=== PATIENT | female | born 1970 | race Caucasian/White ===

== ENCOUNTER 2016-06-15 22:59 | Inpatient (IN) | payer BC ==
[2016-06-15] MEDS ORDERED: LORazepam 2 MG/ML SYRINGE IV STA (23:22)
[2016-06-15] MEDS ORDERED: SODIUM CHLORIDE 0.9% 1,000 ML IV STA (23:22)
[2016-06-15] MEDS ORDERED: methylPREDNISolone SOD SUCCI 125 MG/2 ML VIAL IV STA (23:22)
[2016-06-15] MEDS ORDERED: IPRATROPIUM-ALBUTEROL 3 ML NEB INHALATION STA (23:22)
[2016-06-15] MEDS ORDERED: RX INFO: IV CONTRAST WAS GIVEN 1 EACH MISC MISCELLANE PRN (23:27)
[2016-06-16 00:13] LABS: Basophils # (A) 0.2 k/uL (0-0.2); Basophils % (A) 1 %; CH 31.9; CHCM 34.6; Eosinophils # (A) 0.2 k/uL (0-0.7); Eosinophils % (A) 1 %; HCT 43.5 % (34.0-46.0); HDW 2.35; HGB 15.4 gm/dL (11.4-16.0); Luc # (Auto) 0.26; Luc % (Auto) 2; Lymphocytes # (A) 6.7 k/uL (1.0-4.8); Lymphocytes % (A) 43 %; MCH 32.7 pg (25.0-35.0); MCHC 35.3 g/dL (31.0-37.0); MCV 92.7 fL (80.0-100.0); Monocytes # (A) 0.8 k/uL (0-1.0); Monocytes % (A) 5 %; Neutrophils # (A) 7.6 k/uL (1.3-7.7); Neutrophils % (A) 48 %; RDW 13.2 % (11.5-15.5); WBC 15.7 k/uL (3.8-10.6); WBC (Perox) 15.58
[2016-06-16 00:22] LABS: ALT 43 U/L (9-52); AST 23 U/L (14-36); Alkaline Phosphatase 65 U/L (38-126); Anion Gap 12 mmol/L; Blood Urea Nitrogen 15 mg/dL (7-17); Carbon Dioxide 22 mmol/L (22-30); Chloride 107 mmol/L (98-107); Creatine Kinase 33 U/L (30-135); Glucose 112 mg/dL (74-99); Non-African American GFR(MDRD) >60 (>60 ml/min/1.73 sqM); Potassium 2.8 mmol/L (3.5-5.1); Sodium 141 mmol/L (137-145); Total Bilirubin 0.3 mg/dL (0.2-1.3); Total Protein 6.2 g/dL (6.3-8.2)
[2016-06-16 00:26] LABS: Manual Review Performed
[2016-06-16] MEDS ORDERED: POTASSIUM CHLORIDE ER 20 MEQ TAB.ER PO STA (00:28)
[2016-06-16] MEDS ORDERED: POTASSIUM CHLORIDE 20 MEQ in WATER FOR INJECTION 1 100ML.BAG IVPB STA (00:28)
[2016-06-16 00:32] LABS: INR 0.9 (<1.1); Prothrombin Time 9.6 sec (9.0-12.0)
[2016-06-16 00:34] LABS: Creatine Kinase MB 0.7 ng/mL (0.0-2.4); Troponin I <0.012 ng/mL (0.000-0.034)
[2016-06-16 00:37] LABS: Partial Thromboplastin Time 20.8 sec (22.0-30.0)
--- NOTE | 2016-06-16 01:03 | ED ---
SOB HPI - General Source: patient Mode of arrival: wheelchair Limitations: no limitations <Damián Becker - Last Filed: 06/16/16 00:55> <Ulices Macias - Last Filed: 06/16/16 04:08> - General Chief Complaint: Shortness of Breath Stated Complaint: TODD Time Seen by Provider: 06/15/16 23:16 - History of Present Illness Initial Comments: This 45-year-old white female presents with a complaint of shortness of breath. 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 She states that it came on fairly suddenly and it is associated with some chest pressure. She denies any history of DVT or PE. She denies any history of lower extremity pain or swelling. She relates that the chest pressure is diffuse in nature. She does present hyperventilating but denies any anxiety or history of anxiety attacks or panic attacks. She does relate a history of COPD and does see Dr. Acuña from pulmonology in this regard. She apparently was diagnosed with bronchitis last week and was placed on an antibiotic, some steroids and an HFA. She denies any fever or chills. She denies any other complaints or modifying factors. (Damián Becker) - Related Data Home Medications Medication Instructions Recorded Confirmed Albuterol Inhaler [Ventolin 1 - 2 puff INHALATION RT-Q6H PRN 06/15/16 06/15/16 Inhaler] Fluticasone/Salmeterol [Advair Hfa 2 puff INHALATION RT-BID 06/15/16 06/15/16 230-21 Mcg Inhaler] predniSONE 20 mg PO TID 06/15/16 06/15/16 Allergies Allergy/AdvReac Type Severity Reaction Status Date / Time cephalexin monohydrate Allergy Unknown Verified 06/15/16 23:13 [From [facility]] Review of Systems ROS Other: All systems not noted in ROS Statement are negative. <Damián Becker - Last Filed: 06/16/16 00:55> ROS Other: All systems not noted in ROS Statement are negative. <Ulices Macias - Last Filed: 06/16/16 04:08> ROS Statement: Those systems with pertinent positive or pertinent negative responses have been documented in the HPI. Past Medical History Past Medical History: COPD History of Any Multi-Drug Resistant Organisms: None Reported Past Surgical History: Tubal Ligation Additional Past Surgical History / Comment(s): uterine ablation Past Psychological History: No Psychological Hx Reported Smoking Status: Current every day smoker Past Alcohol Use History: None Reported Past Drug Use History: None Reported <Damián Becker - Last Filed: 06/16/16 00:55> General Exam Limitations: no limitations <Damián Becker - Last Filed: 06/16/16 00:55> <Ulices Macias - Last Filed: 06/16/16 04:08> - General Exam Comments Initial Comments: GENERAL: The patient is well nourished and well hydrated. VITAL SIGNS: Heart rate, blood pressure, respiratory rate reviewed as recorded in nurse's notes. EYES: Pupils are round and reactive. Extraocular movements are intact. No conjunctival / lid redness or swelling. ENT: No external evidence of injury, swelling, or ecchymosis. Airway is patent. Throat is clear. NECK: Nontender. No swelling or evidence of injury. No subcutaneous emphysema. Trachea is midline. No thyroid mass. HEART: Regular rate and rhythm. Good peripheral pulses. LUNGS/CHEST: There is wheezing present bilaterally. She is tachypneic. No ecchymosis, subcutaneous emphysema, or tenderness. ABDOMEN: Abdomen soft without tenderness. No palpable masses or organomegaly. No peritoneal signs. No abdominal wall swelling or ecchymosis. EXTREMITIES: No extremity tenderness. Normal muscle tone and function. No thoracolumbar tenderness. NEUROLOGIC: Sensation is grossly intact. Cranial nerve exam reveals face is symmetrical, tongue is midline, speech is clear. SKIN: No abrasions or ecchymosis is noted. No induration or masses noted. PSYCHIATRIC: Alert and oriented. Appropriate behavior and judgment. (Damián Becker) Medical Decision Making - Lab Data Result diagrams: 06/16/16 00:01 06/16/16 00:01 <Damián Becker - Last Filed: 06/16/16 00:55> - Lab Data Result diagrams: 06/16/16 00:01 06/16/16 00:01 <Ulices Macias - Last Filed: 06/16/16 04:08> - Medical Decision Making The patient was seen and examined. All diagnostics were reviewed. The EKG shows a normal sinus rhythm at a rate of [address]-T wave changes noted. The CA interval is 178, the QRS duration is 78, and the QTc interval is 440. The laboratory came back showing a decreased potassium and this is replaced with both IV and oral potassium. A computed tomography scan of the thorax is ordered. She apparently is scheduled for a CT scan with IV contrast and 3 days anyways. 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 She is given IV steroids as well as DuoNeb breathing treatments and is doing well on recheck. Further care will be passed off to my partner. (Damián Becker) I received the patient as a sign out pending the result of the computed tomography scan and to reevaluate the patient see if she is feeling well enough to go home. The patient has had some improvement in her respiratory symptoms after the steroids and the nebulized treatments, but does not feel back at her baseline. We'll admit the patient for further treatment of the COPD component and also to have an echocardiogram related to her new pleural effusion. (Ulices Macias) - Lab Data Lab Results 06/16/16 06/16/16 06/16/16 Range/Units 00:01 00:01 00:01 WBC 15.7 H (3.8-10.6) k/uL RBC 4.70 (3.80-5.40) m/uL Hgb 15.4 (11.4-16.0) gm/dL Hct 43.5 (34.0-46.0) % MCV 92.7 (80.0-100.0) fL MCH 32.7 (25.0-35.0) pg MCHC 35.3 (31.0-37.0) g/dL RDW 13.2 (11.5-15.5) % Plt Count 234 (150-450) k/uL Neutrophils % 48 % Lymphocytes % 43 % Monocytes % 5 % Eosinophils % 1 % Basophils % 1 % Neutrophils # 7.6 (1.3-7.7) k/uL Lymphocytes # 6.7 H (1.0-4.8) k/uL Monocytes # 0.8 (0-1.0) k/uL Eosinophils # 0.2 (0-0.7) k/uL Basophils # 0.2 (0-0.2) k/uL Manual Slide Review Performed PT (9.0-12.0) sec INR (<1.1) APTT (22.0-30.0) sec D-Dimer (<0.60) mg/L FEU Sodium 141 (137-145) mmol/L Potassium 2.8 L* (3.5-5.1) mmol/L Chloride 107 (98-107) mmol/L Carbon Dioxide 22 (22-30) mmol/L Anion Gap 12 mmol/L BUN 15 (7-17) mg/dL Creatinine 0.70 (0.52-1.04) mg/dL Est GFR (MDRD) Af Amer >60 (>60 ml/min/1.73 sqM) Est GFR (MDRD) Non-Af >60 (>60 ml/min/1.73 sqM) Glucose 112 H (74-99) mg/dL Calcium 9.0 (8.4-10.2) mg/dL Total Bilirubin 0.3 (0.2-1.3) mg/dL AST 23 (14-36) U/L ALT 43 (9-52) U/L Alkaline Phosphatase 65 (38-126) U/L Total Creatine Kinase 33 (30-135) U/L CK-MB (CK-2) 0.7 (0.0-2.4) ng/mL CK-MB (CK-2) Rel Index 2.1 Troponin I <0.012 (0.000-0.034) ng/mL NT-Pro-B Natriuret Pep pg/mL Total Protein 6.2 L (6.3-8.2) g/dL Albumin 3.9 (3.5-5.0) g/dL 06/16/16 06/16/16 Range/Units 00:01 00:01 WBC (3.8-10.6) k/uL RBC (3.80-5.40) m/uL Hgb (11.4-16.0) gm/dL Hct (34.0-46.0) % MCV (80.0-100.0) fL MCH (25.0-35.0) pg MCHC (31.0-37.0) g/dL RDW (11.5-15.5) % Plt Count (150-450) k/uL Neutrophils % % Lymphocytes % % Monocytes % % Eosinophils % % Basophils % % Neutrophils # (1.3-7.7) k/uL Lymphocytes # (1.0-4.8) k/uL Monocytes # (0-1.0) k/uL Eosinophils # (0-0.7) k/uL Basophils # (0-0.2) k/uL Manual Slide Review PT 9.6 (9.0-12.0) sec INR 0.9 (<1.1) APTT 20.8 L (22.0-30.0) sec D-Dimer <0.17 (<0.60) mg/L FEU Sodium (137-145) mmol/L Potassium (3.5-5.1) mmol/L Chloride (98-107) mmol/L Carbon Dioxide (22-30) mmol/L Anion Gap mmol/L BUN (7-17) mg/dL Creatinine (0.52-1.04) mg/dL Est GFR (MDRD) Af Amer (>60 ml/min/1.73 sqM) Est GFR (MDRD) Non-Af (>60 ml/min/1.73 sqM) Glucose (74-99) mg/dL Calcium (8.4-10.2) mg/dL Total Bilirubin (0.2-1.3) mg/dL AST (14-36) U/L ALT (9-52) U/L Alkaline Phosphatase (38-126) U/L Total Creatine Kinase (30-135) U/L CK-MB (CK-2) (0.0-2.4) ng/mL CK-MB (CK-2) Rel Index Troponin I (0.000-0.034) ng/mL NT-Pro-B Natriuret Pep 45 pg/mL Total Protein (6.3-8.2) g/dL Albumin (3.5-5.0) g/dL Disposition <Damián Becker - Last Filed: 06/16/16 00:55> <Ulices Macias - Last Filed: 06/16/16 04:08> Clinical Impression: COPD (chronic obstructive pulmonary disease), Dyspnea, Chest pain, Pericardial effusion Disposition: ADMITTED IP TO THIS HOSP Condition: Fair Referrals: Solo Ibarra MD [Primary Care Provider] - 1-2 days
[2016-06-16] MEDS ORDERED: POTASSIUM CHLORIDE 20 MEQ, LIDOCAINE 2% INJ 20 MG in SODIUM CHLORIDE 0.9% 100 ML IVPB ONE (01:15)
--- NOTE | 2016-06-16 01:51 | CT ---
PROCEDURE: CTA CHEST With Contrast HISTORY: 45-year-old female with shortness of breath and chest pressure. COMPARISON: CT chest 11/20/2015 and CTA chest 05/22/2015 TECHNIQUE: After administration of 70 mL of Omnipaque 350 contrast material intravenously, CT imaging was obtained through the chest. Coronal and sagittal reformations were performed. DOSE: Total Exam volume computed tomography dose index (CTDIvol) = 58 mGy and Dose Length Product (DLP) = 259.2 mGY-cm. FINDINGS: Evaluation is limited by motion degradation and technique. Soft tissues: Visualized portions of the thyroid gland are unremarkable. No significant mediastinal or axillary lymphadenopathy. There are a few mildly enlarged right hilar lymph nodes, similar to prior. Continued CT followup is recommended within 4-6 months. There is a small pericardial effusion, new compared to prior, measuring approximately 8 millimeters in thickness. Otherwise, the heart is within normal limits. There are a few atherosclerotic calcifications of the thoracic aorta. Evaluation for pulmonary embolism is limited by bolus timing and motion degradation. There is no evidence of large central pulmonary embolism. The esophagus is unremarkable. Limited evaluation of the upper abdomen demonstrates postoperative changes of cholecystectomy. Lungs: Mild centrilobular and paraseptal emphysema. There are a few scattered air cysts. 4 millimeter right upper lobe ground glass nodule laterally, series 5 image 30. 3 millimeter groundglass nodule in the anterior aspect of the left upper lobe, series 5 image 34 . Bilateral atelectasis. No pleural effusion. Mild bilateral bronchial wall thickening, may be due to bronchitis. Bones: Unremarkable for age IMPRESSION: 1. New small pericardial effusion, measuring approximately 8 millimeters in thickness. 2. Emphysema. Bilateral groundglass nodules as detailed above. Followup per Fleischner Society guidelines is recommended. 3. Mild bronchial wall thickening, may be due to bronchitis. 4. Right hilar lymphadenopathy, similar to prior. Continued CT followup is recommended within 4-6 months. 5. Evaluation for pulmonary embolism is limited by bolus timing and motion degradation. There is no evidence of large central pulmonary embolism. 6. Other findings as detailed above. [employer] 06/16/16 01:53 Verify Receipt Verified receipt with Dr Rome on 06/16 01:53 (-05:00)
[2016-06-16 05:07] VITALS: BMI 28.3
[2016-06-16 06:43] LABS: ALT 49 U/L (9-52); AST 37 U/L (14-36); Alkaline Phosphatase 63 U/L (38-126); Anion Gap 11 mmol/L; Blood Urea Nitrogen 12 mg/dL (7-17); Calcium 8.7 mg/dL (8.4-10.2); Carbon Dioxide 20 mmol/L (22-30); Chloride 110 mmol/L (98-107); Glucose 151 mg/dL (74-99); Non-African American GFR(MDRD) >60 (>60 ml/min/1.73 sqM); Potassium 3.8 mmol/L (3.5-5.1); Sodium 141 mmol/L (137-145); Total Bilirubin 0.3 mg/dL (0.2-1.3); Total Protein 5.9 g/dL (6.3-8.2)
[2016-06-16 06:48] LABS: Glucose,Whole Blood 150 mg/dL (75-99)
[2016-06-16] MEDS: methylPREDNISolone SOD SUCCI 125 MG/2 ML VIAL IV SCH ×2 (06:50→12:26)
[2016-06-16] MEDS: INSULIN LISPRO (humaLOG) 300 UNIT/3 ML VIAL SQ SCH ×2 (07:29→12:24)
[2016-06-16] MEDS ORDERED: SYMBICORT 160-4.5 MCG INHALER INHALATION SCH (08:00)
[2016-06-16] MEDS ORDERED: ALBUTEROL NEBULIZED 2.5 MG/3 ML INHALATION SCH (08:00)
[2016-06-16] MEDS: IPRATROPIUM-ALBUTEROL 3 ML NEB INHALATION SCH ×2 (08:40→12:00)
[2016-06-16] MEDS ORDERED: POTASSIUM CHLORIDE ER 20 MEQ TAB.ER PO SCH (09:00)
[2016-06-16] MEDS ORDERED: NICOTINE 14MG/24HR PATCH TRANSDERM SCH (09:00)
--- NOTE | 2016-06-16 10:40 | ECHOF ---
Referral Reason:new pericardial effusion MEASUREMENTS -------- HEIGHT: 165.1 cm WEIGHT: 77.1 kg BP: 121/77 RVIDd: 3.2 cm (< 3.3) IVSd: 0.9 cm (0.6 - 1.1) LVIDd: 4.7 cm (3.9 - 5.3) LVPWd: 0.9 cm (0.6 - 1.1) IVSs: 1.4 cm LVIDs: 3.1 cm LVPWs: 1.5 cm LA Diam: 2.9 cm (2.7 - 3.8) LAESV Index (A-L): 20.14 ml/m Ao Diam: 3.0 cm (2.0 - 3.7) AV Cusp: 1.4 cm (1.5 - 2.6) LA Diam: 2.1 cm (2.7 - 3.8) MV EXCURSION: 16.399 mm (> 18.000) MV EF SLOPE: 104 mm/s (70 - 150) EPSS: 0.3 cm MV E Sudeep: 0.98 m/s MV DecT: 258 ms MV A Sudeep: 0.97 m/s MV E/A Ratio: 1.02 AV maxP.63 mmHg AV meanP.04 mmHg RAP: 5.00 mmHg RVSP: 28.76 mmHg FINDINGS -------- Sinus rhythm. This was a technically good study. Left ventricular wall thickness is normal. Overall left ventricular systolic function is normal with, an EF between 55 - 60 %. The right ventricle is normal in size. Normal LA size by volume 22+/-6 ml/m2. The right atrium is normal in size. Aortic valve is trileaflet and is mildly thickened. Peak/mean gradient across the Aortic Valve is 11.63mmHg / 6.04mmHg. Mild mitral annular calcification present. There is trace mitral regurgitation. Trace tricuspid regurgitation present. Right ventricular systolic pressure is normal at < 35 mmHg. Pulmonic valve appears structurally normal. The aortic root size is normal. Normal inferior vena cava with normal inspiratory collapse consistent with estimated right atrial pressure of 5 mmHg. Echo free space may represent effusion or a pericardial fat pad. CONCLUSIONS -------- 1. Sinus rhythm. 2. Mild mitral annular calcification present. 3. There is trace mitral regurgitation. 4. Trace tricuspid regurgitation present. 5. Right ventricular systolic pressure is normal at < 35 mmHg. 6. Pulmonic valve appears structurally normal. 7. The aortic root size is normal. 8. Normal inferior vena cava with normal inspiratory collapse consistent with estimated right atrial pressure of 5 mmHg. 9. Echo free space may represent effusion or a pericardial fat pad. 10. This was a technically good study. 11. Left ventricular wall thickness is normal. 12. Overall left ventricular systolic function is normal with, an EF between 55 - 60 %. 13. The right ventricle is normal in size. 14. Normal LA size by volume 22+/-6 ml/m2. 15. The right atrium is normal in size. 16. Aortic valve is trileaflet and is mildly thickened. 17. Peak/mean gradient across the Aortic Valve is 11.63mmHg / 6.04mmHg. ANTHROPOLOGY INSTRUCTOR: Fernando Hawthorne RDCS
[2016-06-16 11:20] VITALS: BP 100/73; RESP 20; TEMP 97.9
--- NOTE | 2016-06-16 11:25 | P.CRDCN ---
History of Present Illness Consult date: 06/16/16 Requesting physician: Dion Hernandes Consult reason: shortness of breath Chief complaint: Shortness of breath History of present illness: This is a 45-year-old female with no prior documented history of hypertension, no diabetes, no hyperlipidemia, COPD, nicotine dependence, who presents to the hospital with symptoms of shortness of breath and mild chest pressure. According to the patient, she's been dealing with an upper respiratory infection and bronchitis for the past one to 2 weeks, she states that she was at work last evening, when she became quite short of breath. She did state that she had a mild pressure in the chest that worsened with deep breathing. For this reason she came to the emergency room for further evaluation. EKG on arrival here showed a normal sinus rhythm with no acute changes. CT of the chest was performed which revealed new small pericardial effusion approximately 8 mm in thickness. Emphysema. Right hilar lymphadenopathy similar to prior CT. No evidence of large central pulmonary embolism. White blood cell count on admission 15.7, d-dimer 0.17, potassium on admission 2.8, this morning 3.8. BUN 12, creatinine 0.6. Troponin 0.012. Blood pressure on admission 125/83, respirations 32, 100% on room air. At the time of my examination this morning, patient states that her breathing is improved, still has mild congestion and cough from her recent bronchitis. Past Medical History Past Medical History: COPD History of Any Multi-Drug Resistant Organisms: None Reported Past Surgical History: Section, Tubal Ligation Additional Past Surgical History / Comment(s): uterine ablation Past Anesthesia/Blood Transfusion Reactions: No Reported Reaction Past Psychological History: No Psychological Hx Reported Smoking Status: Current every day smoker Past Alcohol Use History: None Reported Past Drug Use History: None Reported - Past Family History Mother Family Medical History: Cancer Additional Family Medical History / Comment(s): BREAST CANCER Medications and Allergies Home Medications Medication Instructions Recorded Confirmed Type Albuterol Inhaler [Ventolin 1 - 2 puff INHALATION RT-Q6H PRN 06/15/16 06/15/16 History Inhaler] Fluticasone/Salmeterol [Advair Hfa 2 puff INHALATION RT-BID 06/15/16 06/15/16 History 230-21 Mcg Inhaler] predniSONE 20 mg PO TID 06/15/16 06/15/16 History Allergies Allergy/AdvReac Type Severity Reaction Status Date / Time cephalexin monohydrate Allergy Unknown Verified 06/15/16 23:13 [From Keflex] Physical Exam Vitals: Vital Signs Temp Pulse Pulse Resp BP BP Pulse Ox 06/16/16 09:10 97.2 F L 7 L 24 110/52 96 06/16/16 06:43 97.0 F L 86 18 121/77 94 L 06/16/16 04:44 82 18 94/55 95 06/16/16 04:35 97.0 F L 86 19 121/77 94 L Intake and Output 06/15/16 06/16/16 06/16/16 22:59 06:59 14:59 Intake Total 700 120 Output Total 600 400 Balance 100 -280 Intake: IV 200 Sodium Chloride 0.9% 1, 200 000 ml @ 100 mls/hr IV . Q10H STA Rx#:[id number] Amount of Fluid Infused ( 500 ml) Oral 120 Output: Urine 600 400 Other: Voiding Method Toilet Toilet # Voids 1 Weight 79 kg PHYSICAL EXAMINATION: HEENT: Head is atraumatic, normocephalic. Pupils equal, round. Neck is supple. There is no elevated jugular venous pressure. HEART EXAMINATION: Heart S1 and S2 systolic murmur is heard CHEST EXAMINATION: Lungs are clear with fine crackles to the bases. ABDOMEN: Soft, nontender. Bowel sounds are heard. No organomegaly noted. EXTREMITIES: 2+ peripheral pulses with no evidence of peripheral edema and no calf tenderness noted. NEUROLOGIC patient is awake, alert and oriented -3. . Results 06/16/16 00:01 06/16/16 06:13 Cardiac Enzymes 06/16/16 Range/Units 06:13 AST 37 H (14-36) U/L Comprehensive Metabolic Panel 06/16/16 Range/Units 06:13 Sodium 141 (137-145) mmol/L Potassium 3.8 (3.5-5.1) mmol/L Chloride 110 H (98-107) mmol/L Carbon Dioxide 20 L (22-30) mmol/L BUN 12 (7-17) mg/dL Creatinine 0.60 (0.52-1.04) mg/dL Glucose 151 H (74-99) mg/dL Calcium 8.7 (8.4-10.2) mg/dL AST 37 H (14-36) U/L ALT 49 (9-52) U/L Alkaline Phosphatase 63 (38-126) U/L Total Protein 5.9 L (6.3-8.2) g/dL Albumin 3.6 (3.5-5.0) g/dL Current Medications Generic Name Dose Route Start Last Admin Trade Name Freq PRN Reason Stop Dose Admin Albuterol/Ipratropium 3 ml 06/16/16 08:00 Duoneb 0.5 Mg-3 Mg/3 Ml Soln INHALATION RT-QID ISABELLA Budesonide/Formoterol Fumarate 2 puff 06/16/16 08:00 Symbicort 160-4.5 Mcg Inhaler INHALATION RT-BID [facility] Insulin Human Lispro 0 unit 06/16/16 07:30 06/16/16 07:29 Humalog SQ 2 unit ACHS ISABELLA Administration Protocol Methylprednisolone Sodium Succinate 60 mg 06/16/16 06:00 06/16/16 06:50 Solu-Medrol IV 60 mg Q6HR ISABELLA Administration Miscellaneous Information 1 each 06/15/16 23:27 Rx Info: Iv Contrast Was Given MISCELLANE 06/17/16 23:27 DAILY PRN Per Protocol Nicotine 1 patch 06/16/16 09:00 06/16/16 09:15 Habitrol 14mg/24hr Patch TRANSDERM Not Given Q24H [facility] Potassium Chloride 20 meq 06/16/16 09:00 06/16/16 09:15 K-Dur 20 PO 20 meq BID ISABELLA Administration Intake and Output 06/15/16 06/16/16 06/16/16 22:59 06:59 14:59 Intake Total 700 120 Output Total 600 400 Balance 100 -280 Intake: IV 200 Sodium Chloride 0.9% 1, 200 000 ml @ 100 mls/hr IV . Q10H STA Rx#:[id number] Amount of Fluid Infused ( 500 ml) Oral 120 Output: Urine 600 400 Other: Voiding Method Toilet Toilet # Voids 1 Weight 79 kg 06/16/16 06:13 EKG Interpretations (text) EKG shows normal sinus rhythm with no acute changes. Assessment and Plan Plan: Assessment and plan #1 symptoms of a fairly sudden onset of shortness of breath with mild associated chest discomfort. Atypical for acute coronary syndrome. Troponin 0.012. EKG shows normal sinus rhythm with no acute changes. CT of the chest reveals small pericardial effusion #2 recent bronchitis, on antibiotics and steroids. #3 hypokalemia, potassium 2.8 on admission, 3.8 this morning. #4 nicotine dependence #5 COPD Plan We will obtain an echocardiogram with Doppler study along with sed rate. Further recommendations to follow. DNP note has been reviewed, I agree with a documented findings and plan of care. Patient was seen and examined.
[2016-06-16 12:04] VITALS: PULSE 72
[2016-06-16 12:12] LABS: Glucose,Whole Blood 195 mg/dL (75-99)
--- NOTE | 2016-06-16 18:25 | HP ---
H&P AND DISCHARGE SUMMARY DATE OF ADMISSION: 06/16/2016 Patient is a 45-year-old female with known history of COPD and continued nicotine use. She came in with complaints of shortness of breath, cough, barely able to produce any sputum, which is yellowish in color. Denied any complaints of chest pain, nausea, vomiting. Denied any abdominal pain. Incidentally patient on CT was found to have possibility of pericardial effusion, because of which patient underwent echocardiogram. There may be a mild pericardial effusion or it can be even pericardial fat. No further intervention is being recommended by Cardiology. Patient is saturating well on room air. Patient has good air entry into bilateral lung toro. Patient will be discharged today on weaning dose of steroids and doxycycline for bronchitis. Patient denied any fever or chills. Patient does not have any pneumonic process on the CT. No pulmonary embolism on the CT. REVIEW OF SYSTEMS: CONSTITUTIONAL: No fever, no malaise, no fatigue. HEENT: No recent visual problems or hearing problems. Denied any sore throat. CARDIOVASCULAR: As described in HPI. PULMONARY: As described in HPI. GASTROINTESTINAL: No diarrhea, no nausea, no vomiting, no abdominal pain. Normoactive bowel sounds. NEUROLOGICAL: No headaches, no weakness, no numbness. HEMATOLOGICAL: Denies any bleeding or petechiae. GENITOURINARY: Denies any burning micturition, frequency, or urgency. MUSCULOSKELETAL/RHEUMATOLOGICAL: Denies any joint pain, swelling, or any muscle pain. ENDOCRINE: Denies any polyuria or polydipsia. The rest of the 14 point review of systems is negative. Past medical history is significant for: 1. COPD. 2. section. 3. Tubal ligation surgery. 4. Uterine ablation surgery. Patient does smoke and is willing to quit smoking. Denied any alcohol abuse or any drug abuse. FAMILY HISTORY: Mother had breast cancer. HOME MEDICATIONS: 1. Albuterol. 2. Fluticasone/salmeterol. 3. Prednisone. ALLERGIES: KEFLEX. PHYSICAL EXAMINATION: VITAL SIGNS: Temperature 97.9, pulse of 72, respiratory rate of 84. Blood pressure is 110/52. Saturating at 95% on room air. GENERAL: The patient is alert and oriented x3, not in any acute distress. Well developed, well nourished. HEENT: Pupils are round and equally reacting to light. EOMI. No scleral icterus. No conjunctival pallor. Normocephalic, atraumatic. No pharyngeal erythema. No thyromegaly. CARDIOVASCULAR: S1 and S2 present. No murmurs, rubs, or gallops. PULMONARY: Chest is clear to auscultation, no wheezing or crackles. ABDOMEN: Soft, nontender, nondistended, normoactive bowel sounds. No palpable organomegaly. MUSCULOSKELETAL: No joint swelling or deformity. EXTREMITIES: No cyanosis, clubbing, or pedal edema. NEUROLOGICAL: Gross neurological examination did not reveal any focal deficits. SKIN: No rashes. LABORATORY DATA: CBC, CMP are abnormal for elevated WBC count of 15,700. Potassium was 2.8; now with correction it is 3.8. Chest CT as mentioned above. ASSESSMENT AND PLAN: 1. Chronic obstructive pulmonary disease with acute exacerbation. Patient will be discharged on systemic steroids, inhalational treatments. Patient is otherwise clinically doing well. 2. Tracheobronchitis. 3. Hypokalemia, which was supplemented. 4. Nicotine dependence. Counseling was provided. Cardiology evaluated the patient. Patient is being discharged today in stable medical condition to home. Activity as tolerated. Nicotine cessation counseling was provided. Please refer to my depart summary for further details of discharge medications. This dictation is both H&P and discharge summary. Patient will follow up with Dr. Ibarra on June 17 at 9:50. Patient will follow up with Dr. Jaylon Rosenthal in 2 weeks. Patient can return to work next Wednesday.
== END 2016-06-16 16:06 | disposition home or self-care (01) | DRG 191 ==
LOC: EC 22:59 → 6SEL 06-16 04:29
PROVIDERS: ADMIT Hospitalist; ATTEND Hospitalist
DX: J44.1 Chronic obstructive pulmonary disease with (acute) exacerbation (principal); I31.3 Pericardial effusion (noninflammatory); E87.6 Hypokalemia; F17.200 Nicotine dependence, unspecified, uncomplicated; R07.89 Other chest pain; R59.0 Localized enlarged lymph nodes; Z79.899 Other long term (current) drug therapy; Z88.1 Allergy status to other antibiotic agents
CPT/HCPCS: 36415; 71275; 80053; 82550; 82553; 83880; 84484; 85025; 85379; 85610; 85652; 85730; 93005; 93306; 94640; 96361; 96365; 96366; 96375; 99285

== ENCOUNTER → 2017-06-21 | Outpatient (CLI) | payer BC ==
--- NOTE | 2017-06-21 09:35 | CT ---
EXAMINATION TYPE: CT chest w con DATE OF EXAM: 06/21/2017 COMPARISON: 06/16/2016 and 05/22/2015 HISTORY: 46-year-old female Lymphadenopathy TECHNIQUE: Contiguous axial scanning of the chest after the administration of 100 ml mL of Omnipaque 300. Coronal/sagittal reconstructions performed. CT DLP: 255.50mGycm. Automatic exposure control utilized for a dose reduction. FINDINGS: Heart is normal size with small anterior pericardial effusion measuring 1.3 cm thick. Ascending aorta upper limits of normal at 3.6 cm. There is variant direct takeoff of the left vertebr al artery directly from the aortic arch. No thoracic lymphadenopathy by CT size criteria. Previously seen right hilar lymphadenopathy has res olved. Redemonstrated is mild centrilobular emphysema. Mild strandy dependent atelectasis in the lung bases. No consolidation or pleural effusion. Visualized upper abdomen shows cholecystectomy clips. Bones: No osseous destructive process. IMPRESSION: 1. Previously seen right hilar lymphadenopathy has resolved suggesting a postinflammatory etiology. 2. Small anterior pericardial effusion now measuring 1.3 cm thick versus 8 mm, previously. 3. COPD with mild emphysema.
== END | disposition home or self-care (01) ==
LOC: RADCTMAIN 08:40
PROVIDERS: ATTEND Internal Medicine Critical Care Medicine
DX: I31.3 Pericardial effusion (noninflammatory) (principal); J43.9 Emphysema, unspecified; Z88.1 Allergy status to other antibiotic agents
CPT/HCPCS: 71260; Q9967

== ENCOUNTER → 2018-07-11 | Outpatient (CLI) | payer BC ==
[2018-07-11 11:47] LABS: HCT 43.6 % (34.0-46.0); HGB 14.9 gm/dL (11.4-16.0); MCH 30.5 pg (25.0-35.0); MCV 89.6 fL (80.0-100.0); Mean Platelet Volume 7.9; Platelet Count 265 k/uL (150-450); RBC 4.87 m/uL (3.80-5.40); RDW 13.8 % (11.5-15.5); WBC 8.2 k/uL (3.8-10.6)
[2018-07-11 11:53] LABS: Anion Gap 6 mmol/L; Blood Urea Nitrogen 18 mg/dL (7-17); Carbon Dioxide 28 mmol/L (22-30); Chloride 107 mmol/L (98-107); Potassium 4.7 mmol/L (3.5-5.1); Sodium 141 mmol/L (137-145)
== END | disposition home or self-care (01) ==
LOC: LABPAT 07-08 11:52
PROVIDERS: ATTEND Internal Medicine Interventional Cardiology
DX: Z01.812 Encounter for preprocedural laboratory examination (principal); R07.9 Chest pain, unspecified
CPT/HCPCS: 36415; 80051; 82565; 84520; 85027

== ENCOUNTER → 2018-07-20 | Day surgery (SDC) | payer BC ==
[2018-07-14 13:32] VITALS: BMI 27.9
[~2018-07-20] MED LIST: ALPRAZolam 0.25 MG TAB PO PRN; ALPRAZolam 0.5 MG TAB PO PRN; ASPIRIN 325 MG TAB PO STA; ATORVASTATIN 80 MG TAB PO STA; HEPARIN SODIUM 1,000 UN/ML (10ML VL) IV ONE; IOPAMIDOL-370 150ML BTL INJ ONE; LIDOCAINE 1% INJ 10MG/ML (20 ML MDV) SQ ONE; NITROGLYCERIN SL TABS 0.4 MG TAB SUBLINGUAL PRN; RX INFO: IV CONTRAST WAS GIVEN 1 EACH MISC MISCELLANE PRN; SODIUM CHLORIDE 0.9% 1,000 ML IV SCH; SODIUM CHLORIDE 0.9% 1,000 ML in EMPTY BAG 1 BAG IV ONE
[2018-07-20 12:23] VITALS: RESP 18; TEMP 98
[2018-07-20] MEDS: MIDAZOLAM 2 MG/2 ML VIAL IV ONE ×2 (14:15→14:20)
[2018-07-20] MEDS: VERAPAMIL SYRINGE (5 MG/10 ML) INTRAARTER ONE ×2 (14:21→14:32)
--- NOTE | 2018-07-20 15:23 | CC ---
CARDIAC CATHETERIZATION REPORT DATE OF SERVICE: 07/20/2018 PERFORMING PHYSICIAN: Nemesio Espinoza MD, Technical System Analyst. PROCEDURE PERFORMED: 1. Selective right and left coronary angiogram. 2. Left heart catheterization. INDICATION: This is a 47-year-old female patient with very significant family history of coronary artery disease who continues to have chest discomfort in spite of a normal stress test. Because of that, I had a concern about severe underlying coronary artery disease and the patient was scheduled to undergo a heart catheterization. APPROACH: Right radial artery. COMPLICATION: None. LEVEL OF SEDATION: Moderate with sedation length of 15 minutes. PROCEDURE DESCRIPTION: After obtaining an informed consent, the patient was brought to the cardiac labor union business representative. The right radial artery was cannulated using micropuncture technique and a micropuncture wire passed easily, then I placed a 6-Indonesian sheath in the right radial artery. I gave the patient 2 mg of verapamil IA and 8,000 units of heparin IV. I did selective right and left coronary angiogram using JR4 and JL3.5 catheters. A left heart catheterization was performed using 6-Indonesian pigtail catheter. The procedure was completed without any complication. SELECTIVE CORONARY ANGIOGRAM: 1. The right coronary artery is a large caliber vessel and it is a dominant vessel. The RCA has mild disease in the midportion, appeared to be in the range of 30%. Distally bifurcates into PDA and PLV branches both appeared to be angiographically normal. 2. The left main is angiographically normal, it bifurcates into left circumflex and left anterior descending artery. 3. Left circumflex is a large caliber vessel. It is a nondominant vessel. The left circumflex appeared to have mild disease in the first obtuse marginal branch only. 4. The LAD, the proximal LAD appeared to be angiographically normal. It gives rise into a large first diagonal branch which has mild ostial disease. The LAD in the midportion has mild disease only. The LAD distally appeared to be angiographically normal. HEMODYNAMICS: The left ventricular end-diastolic pressure was 8 mmHg without significant gradient across the aortic valve. CONCLUSION: 1. Mild to moderate nonobstructive disease involving the mid right coronary artery as well as LAD. 2. Postprocedure management is maximize medical treatment. 3. Aggressive cholesterol, controlled. 4. Follow up with the patient. MMODL / IJN: [id number] /
--- NOTE | 2018-07-20 16:33 | LTR ---
DATE OF SERVICE: July 20, [address] Ibarra: Ms. Juana Baxter underwent a heart catheterization and that revealed mild nonobstructive coronary artery disease. Thank you for allowing me to participate in his care and please do not hesitate to call if you have any questions or concerns. MMFREDIL / IJN: [id number] /
[2018-07-20 18:22] VITALS: BP 124/76; PULSE 62
== END ==
LOC: CATHCVL 11:50
PROVIDERS: ATTEND Internal Medicine Interventional Cardiology
DX: I25.110 Atherosclerotic heart disease of native coronary artery with unstable angina pectoris (principal); Z87.891 Personal history of nicotine dependence; Z82.49 Family history of ischemic heart disease and other diseases of the circulatory system; R07.89 Other chest pain; Z88.1 Allergy status to other antibiotic agents; Z79.51 Long term (current) use of inhaled steroids; Z79.899 Other long term (current) drug therapy; J44.9 Chronic obstructive pulmonary disease, unspecified
CPT/HCPCS: 93458; C1894; J2250; J2001; J1644; Q9967

== ENCOUNTER → 2018-11-12 | Outpatient (CLI) | payer BC ==
[2018-11-12 16:59] LABS: LDL Cholesterol,Calculated 70.2 mg/dL (0.0-131.0); VLDL Calculation 16.8 mg/dL (5.00-40.00)
== END | disposition home or self-care (01) ==
LOC: LABWHC1 09:05
PROVIDERS: ATTEND Internal Medicine Interventional Cardiology
DX: E78.2 Mixed hyperlipidemia (principal)
CPT/HCPCS: 36415; 80061; 84450; 84460

== ENCOUNTER 2019-11-24 17:54 | Observation (INO) | payer BC ==
[2019-11-24] MEDS ORDERED: ASPIRIN 81 MG PO STA (19:01)
[2019-11-24] MEDS ORDERED: NITROGLYCERIN SL TABS 0.4 MG TAB SUBLINGUAL STA ×3 (19:01)
--- NOTE | 2019-11-24 19:04 | ED ---
General Adult HPI - General Chief complaint: Chest Pain Stated complaint: Chest pain Time Seen by Provider: 11/24/19 18:40 Source: patient, RN notes reviewed Mode of arrival: ambulatory Limitations: no limitations - History of Present Illness Initial comments: Patient is a pleasant 49-year-old female presenting to the emergency Department with chest discomfort. Onset of symptoms was just prior to arrival. Discomfort feels like tightness. No radiation. Patient does have associated dyspnea. No associated nausea or diaphoresis. Patient did have similar symptoms around a year ago and had heart catheterization showing 30-40% blockage. Discomfort is currently rated 6/10. No leg pain or leg swelling. - Related Data Home Medications Medication Instructions Recorded Confirmed Fluticasone/Salmeterol [Advair Hfa 2 puff INHALATION BID 06/15/16 07/20/18 230-21 Mcg Inhaler] Allergies Allergy/AdvReac Type Severity Reaction Status Date / Time cephalexin monohydrate Allergy Rash/Hives Verified 11/24/19 18:08 [From [employer]] Review of Systems ROS Statement: Those systems with pertinent positive or pertinent negative responses have been documented in the HPI. ROS Other: All systems not noted in ROS Statement are negative. Constitutional: Denies: fever Eyes: Denies: eye pain ENT: Denies: ear pain Respiratory: Reports: dyspnea. Denies: cough Cardiovascular: Reports: chest pain Endocrine: Denies: fatigue Gastrointestinal: Denies: abdominal pain Genitourinary: Denies: dysuria Musculoskeletal: Denies: back pain Skin: Denies: rash Neurological: Denies: weakness Past Medical History Past Medical History: COPD History of Any Multi-Drug Resistant Organisms: None Reported Past Surgical History: Section, Tubal Ligation Additional Past Surgical History / Comment(s): uterine ablation Past Anesthesia/Blood Transfusion Reactions: No Reported Reaction Past Psychological History: No Psychological Hx Reported Smoking Status: Never smoker Past Alcohol Use History: None Reported Past Drug Use History: None Reported - Past Family History Mother Family Medical History: Cancer, Deep Vein Thrombosis (DVT), Pulmonary Embolus Additional Family Medical History / Comment(s): BREAST CANCER General Exam Limitations: no limitations General appearance: alert, in no apparent distress Head exam: Present: normocephalic Eye exam: Present: normal appearance Neck exam: Present: normal inspection Respiratory exam: Present: normal lung sounds bilaterally. Absent: chest wall tenderness Cardiovascular Exam: Present: regular rate, normal rhythm Expanded Peripheral pulses: 2+: Radial (R), Radial (L), Dorsalis Pedis (R), Dorsalis Pedis (L) GI/Abdominal exam: Present: soft. Absent: tenderness Extremities exam: Present: normal inspection. Absent: pedal edema, calf tenderness Neurological exam: Present: alert Psychiatric exam: Present: normal affect, normal mood Skin exam: Present: normal color Course Vital Signs 11/24/19 11/24/19 18:06 19:17 Temperature 98.2 F Pulse Rate 64 61 Respiratory 16 18 Rate Blood Pressure 145/85 150/88 O2 Sat by Pulse 100 97 Oximetry EKG Findings - EKG Comments: EKG Findings:: Sinus bradycardia 59. OK 200. QRS 86. QT 448. QTC 443. Normal axis. Normal QRS. No acute ST change. Medical Decision Making - Medical Decision Making Patient reevaluated and does appear more comfortable. Patient states there has been mild improvement with nitroglycerin. Patient updated on results and plan. Case discussed in detail with practitioner Kim, covering for Dr. Romero, who will admit covering for basophils - Lab Data Result diagrams: 11/24/19 18:50 11/24/19 18:50 Lab Results 11/24/19 11/24/19 11/24/19 Range/Units 18:50 18:50 18:50 WBC 11.9 H (3.8-10.6) k/uL RBC 5.02 (3.80-5.40) m/uL Hgb 14.7 (11.4-16.0) gm/dL Hct 45.1 (34.0-46.0) % MCV 89.9 (80.0-100.0) fL MCH 29.2 (25.0-35.0) pg MCHC 32.5 (31.0-37.0) g/dL RDW 12.5 (11.5-15.5) % Plt Count 278 (150-450) k/uL Neutrophils % 66 % Lymphocytes % 27 % Monocytes % 4 % Eosinophils % 1 % Basophils % 1 % Neutrophils # 7.9 H (1.3-7.7) k/uL Lymphocytes # 3.2 (1.0-4.8) k/uL Monocytes # 0.5 (0-1.0) k/uL Eosinophils # 0.1 (0-0.7) k/uL Basophils # 0.1 (0-0.2) k/uL PT 9.7 (9.0-12.0) sec INR 0.9 (<1.2) APTT 21.1 L (22.0-30.0) sec D-Dimer 0.24 (<0.60) mg/L FEU Sodium 139 (137-145) mmol/L Potassium 3.2 L (3.5-5.1) mmol/L Chloride 108 H (98-107) mmol/L Carbon Dioxide 21 L (22-30) mmol/L Anion Gap 10 mmol/L BUN 9 (7-17) mg/dL Creatinine 0.72 (0.52-1.04) mg/dL Est GFR (CKD-EPI)AfAm >90 (>60 ml/min/1.73 sqM) Est GFR (CKD-EPI)NonAf >90 (>60 ml/min/1.73 sqM) Glucose 100 H (74-99) mg/dL Calcium 10.0 (8.4-10.2) mg/dL Magnesium 2.1 (1.6-2.3) mg/dL Total Bilirubin 0.5 (0.2-1.3) mg/dL AST 31 (14-36) U/L ALT 24 (4-34) U/L Alkaline Phosphatase 76 (38-126) U/L Troponin I (0.000-0.034) ng/mL Total Protein 7.2 (6.3-8.2) g/dL Albumin 4.8 (3.5-5.0) g/dL 11/24/19 Range/Units 18:50 WBC (3.8-10.6) k/uL RBC (3.80-5.40) m/uL Hgb (11.4-16.0) gm/dL Hct (34.0-46.0) % MCV (80.0-100.0) fL MCH (25.0-35.0) pg MCHC (31.0-37.0) g/dL RDW (11.5-15.5) % Plt Count (150-450) k/uL Neutrophils % % Lymphocytes % % Monocytes % % Eosinophils % % Basophils % % Neutrophils # (1.3-7.7) k/uL Lymphocytes # (1.0-4.8) k/uL Monocytes # (0-1.0) k/uL Eosinophils # (0-0.7) k/uL Basophils # (0-0.2) k/uL PT (9.0-12.0) sec INR (<1.2) APTT (22.0-30.0) sec D-Dimer (<0.60) mg/L FEU Sodium (137-145) mmol/L Potassium (3.5-5.1) mmol/L Chloride (98-107) mmol/L Carbon Dioxide (22-30) mmol/L Anion Gap mmol/L BUN (7-17) mg/dL Creatinine (0.52-1.04) mg/dL Est GFR (CKD-EPI)AfAm (>60 ml/min/1.73 sqM) Est GFR (CKD-EPI)NonAf (>60 ml/min/1.73 sqM) Glucose (74-99) mg/dL Calcium (8.4-10.2) mg/dL Magnesium (1.6-2.3) mg/dL Total Bilirubin (0.2-1.3) mg/dL AST (14-36) U/L ALT (4-34) U/L Alkaline Phosphatase (38-126) U/L Troponin I <0.012 (0.000-0.034) ng/mL Total Protein (6.3-8.2) g/dL Albumin (3.5-5.0) g/dL - Radiology Data Radiology results: image reviewed (Chest x-ray shows no acute process) Disposition Clinical Impression: Chest pain Disposition: ADMITTED IP TO THIS HOSP Is patient prescribed a controlled substance at d/c from ED?: No Referrals: Solo Ibarra MD [Primary Care Provider] - 1-2 days Decision Time: 19:48
[2019-11-24 19:10] LABS: Basophils # (A) 0.1 k/uL (0-0.2); Basophils % (A) 1 %; Eosinophils # (A) 0.1 k/uL (0-0.7); Eosinophils % (A) 1 %; HCT 45.1 % (34.0-46.0); HGB 14.7 gm/dL (11.4-16.0); Lymphocytes # (A) 3.2 k/uL (1.0-4.8); Lymphocytes % (A) 27 %; MCH 29.2 pg (25.0-35.0); MCHC 32.5 g/dL (31.0-37.0); MCV 89.9 fL (80.0-100.0); Mean Platelet Volume 7.9; Monocytes # (A) 0.5 k/uL (0-1.0); Monocytes % (A) 4 %; Neutrophils # (A) 7.9 k/uL (1.3-7.7); Neutrophils % (A) 66 %; Platelet Count 278 k/uL (150-450); RBC 5.02 m/uL (3.80-5.40); RDW 12.5 % (11.5-15.5); WBC 11.9 k/uL (3.8-10.6)
[2019-11-24 19:22] LABS: ALT 24 U/L (4-34); AST 31 U/L (14-36); African American GFR (CKD) >90 (>60 ml/min/1.73 sqM); Albumin 4.8 g/dL (3.5-5.0); Alkaline Phosphatase 76 U/L (38-126); Anion Gap 10 mmol/L; Blood Urea Nitrogen 9 mg/dL (7-17); Carbon Dioxide 21 mmol/L (22-30); Chloride 108 mmol/L (98-107); Glucose 100 mg/dL (74-99); Magnesium 2.1 mg/dL (1.6-2.3); Non-African American GFR(CKD) >90 (>60 ml/min/1.73 sqM); Potassium 3.2 mmol/L (3.5-5.1); Sodium 139 mmol/L (137-145); Total Bilirubin 0.5 mg/dL (0.2-1.3); Total Protein 7.2 g/dL (6.3-8.2)
[2019-11-24 19:30] LABS: D-Dimer 0.24 mg/L FEU (<0.60); INR 0.9 (<1.2); Prothrombin Time 9.7 sec (9.0-12.0)
[2019-11-24 19:40] LABS: Partial Thromboplastin Time 21.1 sec (22.0-30.0)
--- NOTE | 2019-11-24 19:41 | XR ---
EXAMINATION TYPE: XR chest 2V DATE OF EXAM: 11/24/2019 COMPARISON: 05/21/2015 HISTORY: Difficulty breathing. Chest pain TECHNIQUE: FINDINGS: Heart and mediastinum are normal. Lungs are clear. Diaphragm is normal. There are chest alison ds. Bony thorax appears normal. IMPRESSION: Normal chest. No change.
[2019-11-24] MEDS ORDERED: NITROGLYCERIN SL TABS 0.4 MG TAB SUBLINGUAL PRN (19:49)
[2019-11-25] MEDS: NITROGLYCERIN OINT 1 INCH/GM PACKET TOPICAL SCH ×2 (00:18→06:49)
[2019-11-25 04:29] LABS: Cholesterol 269 mg/dL (<200); HDL Cholesterol 53 mg/dL (40-60); LDL Cholesterol,Calculated 193 mg/dL (0-99); Triglycerides 115 mg/dL (<150)
--- NOTE | 2019-11-25 07:27 | P.HPIM ---
History of Present Illness This is a pleasant 49 years old female with past medical history of COPD. She is patient of Dr. Thornton. Presents because of chest pain and dyspnea which started 15-20 minutes before coming to the hospital which had this addressed. Pain is central nonradiating, felt like sharp about 6/10 in severity, resolved with nitroglycerin. No associated cough but she has some little dyspnea with it. Last night with these down with medication and this morning is almost gone with only little discomfort. Dyspnea resolved also. No other complaint. No blurred vision or weakness. No nausea vomiting. No coughing. No change in urine or bowel habits. She quit smoking about 3 years ago and she denies alcohol or illicit tracts. She follow up with Dr. Espinoza for her coronary artery disease with 30-40% blockage. And she follows up with Dr. Acuña for her COPD. Her PCP is Dr. Thornton Vitals are stable and patient is afebrile. She has mild leukocytosis of 11.9 K, rest of CBC and INR are unremarkable, d-dimer is -0.24. BMP and liver enzymes were unremarkable except for mild low potassium of 3.2. Severe troponins are negative at less than 0.012. EKG shows sinus bradycardia at [address]-T changes. Chest x-ray: No acute process. The emergency room patient was started on aspirin Review of Systems CONSTITUTIONAL: No fever, no malaise, no fatigue. HEENT: No recent visual problems or hearing problems. Denied any sore throat. CARDIOVASCULAR: No orthopnea, PND, no palpitations, no syncope. PULMONARY: No shortness of breath, no cough, no hemoptysis. GASTROINTESTINAL: No diarrhea, no nausea, no vomiting, no abdominal pain. Normoactive bowel sounds. NEUROLOGICAL: No headaches, no weakness, no numbness. HEMATOLOGICAL: Denies any bleeding or petechiae. GENITOURINARY: Denies any burning micturition, frequency, or urgency. MUSCULOSKELETAL/RHEUMATOLOGICAL: Denies any joint pain, swelling, or any muscle pain. ENDOCRINE: Denies any polyuria or polydipsia. Past Medical History Past Medical History: COPD History of Any Multi-Drug Resistant Organisms: None Reported Past Surgical History: Section, Tubal Ligation Additional Past Surgical History / Comment(s): uterine ablation Past Anesthesia/Blood Transfusion Reactions: No Reported Reaction Past Psychological History: No Psychological Hx Reported Smoking Status: Former smoker Past Alcohol Use History: None Reported Past Drug Use History: None Reported - Past Family History Mother Family Medical History: Cancer, Deep Vein Thrombosis (DVT), Pulmonary Embolus Additional Family Medical History / Comment(s): BREAST CANCER Medications and Allergies Home Medications Medication Instructions Recorded Confirmed Type Multivitamins, Thera [Multivitamin 1 tab PO DAILY 11/24/19 11/24/19 History (formulary)] Allergies Allergy/AdvReac Type Severity Reaction Status Date / Time cephalexin monohydrate Allergy Rash/Hives Verified 11/24/19 18:08 [From Keflex] Physical Exam Vitals: Vital Signs Temp Pulse Pulse Resp BP BP Pulse Ox 11/25/19 06:20 97.8 F 66 18 158/81 97 11/24/19 22:57 96 11/24/19 21:00 97.5 F L 49 L 18 127/77 96 11/24/19 20:39 98.2 F 61 17 118/78 97 11/24/19 20:00 61 17 118/78 11/24/19 19:30 67 18 150/88 11/24/19 19:17 61 18 150/88 97 11/24/19 19:00 59 L 12 132/80 11/24/19 18:39 58 L 18 11/24/19 18:06 98.2 F 64 16 145/85 100 Intake and Output 11/24/19 11/25/19 11/25/19 22:59 06:59 14:59 Intake Total 50 Balance 50 Intake: Oral 50 Other: Voiding Method Toilet # Voids 1 Weight 84.368 kg GENERAL: The patient is alert and oriented x3, not in any acute distress. Well developed, well nourished. HEENT: Pupils are round and equally reacting to light. EOMI. No scleral icterus. No conjunctival pallor. Normocephalic, atraumatic. No pharyngeal erythema. No thyromegaly. CARDIOVASCULAR: S1 and S2 present. No murmurs, rubs, or gallops. PULMONARY: Chest is clear to auscultation, no wheezing or crackles. ABDOMEN: Soft, nontender, nondistended, normoactive bowel sounds. No palpable organomegaly. MUSCULOSKELETAL: No joint swelling or deformity. EXTREMITIES: No cyanosis, clubbing, or pedal edema. NEUROLOGICAL: Gross neurological examination did not reveal any focal deficits. SKIN: No rashes. No petechiae Results CBC & Chem 7: 11/24/19 18:50 11/24/19 18:50 Labs: Abnormal Lab Results - Last 24 Hours (Table) 11/24/19 11/24/19 11/24/19 Range/Units 18:50 18:50 18:50 WBC 11.9 H (3.8-10.6) k/uL Neutrophils # 7.9 H (1.3-7.7) k/uL APTT 21.1 L (22.0-30.0) sec Potassium 3.2 L (3.5-5.1) mmol/L Chloride 108 H (98-107) mmol/L Carbon Dioxide 21 L (22-30) mmol/L Glucose 100 H (74-99) mg/dL Cholesterol (<200) mg/dL LDL Cholesterol, Calc (0-99) mg/dL 11/24/19 Range/Units 18:50 WBC (3.8-10.6) k/uL Neutrophils # (1.3-7.7) k/uL APTT (22.0-30.0) sec Potassium (3.5-5.1) mmol/L Chloride (98-107) mmol/L Carbon Dioxide (22-30) mmol/L Glucose (74-99) mg/dL Cholesterol 269 H (<200) mg/dL LDL Cholesterol, Calc 193 H (0-99) mg/dL Thrombosis Risk Factor Assmnt - Choose All That Apply Any of the Below Risk Factors Present?: Yes Each Factor Represents 1 point: Abnormal pulmonary function (COPD), Age 41-60 years Thrombosis Risk Factor Assessment Total Risk Factor Score: 2 Thrombosis Risk Factor Assessment Level: Low Risk Assessment and Plan Assessment: -Chest pain, rule out cardiac causes with negative d-dimer, consult cardiology team was here troponin and EKG. Continue with aspirin -Mild leukocytosis, mostly reactive. Recheck CBC -Mild hypokalemia, replaced. Check potassium and magnesium DVT prophylaxis: Subcutaneous heparin GI Prophylaxis: Ppi
[2019-11-25] MEDS ORDERED: PANTOPRAZOLE 40 MG TABLET PO SCH (07:30)
[2019-11-25 08:24] LABS: Basophils % (A) 0 %; Eosinophils # (A) 0.1 k/uL (0-0.7); Eosinophils % (A) 1 %; HCT 45.6 % (34.0-46.0); HGB 14.7 gm/dL (11.4-16.0); Lymphocytes # (A) 2.5 k/uL (1.0-4.8); Lymphocytes % (A) 32 %; MCH 29.7 pg (25.0-35.0); MCHC 32.1 g/dL (31.0-37.0); MCV 92.5 fL (80.0-100.0); Mean Platelet Volume 7.9; Monocytes # (A) 0.4 k/uL (0-1.0); Monocytes % (A) 6 %; Neutrophils # (A) 4.6 k/uL (1.3-7.7); Neutrophils % (A) 59 %; Platelet Count 250 k/uL (150-450); RBC 4.93 m/uL (3.80-5.40); RDW 12.8 % (11.5-15.5); WBC 7.8 k/uL (3.8-10.6)
[2019-11-25 08:32] LABS: Magnesium 2.1 mg/dL (1.6-2.3); Potassium 3.6 mmol/L (3.5-5.1)
[2019-11-25] MEDS ORDERED: POTASSIUM CHLORIDE ER 20 MEQ TAB.ER PO STA (08:57)
[2019-11-25] MEDS ORDERED: HEPARIN SODIUM,PORCINE 5,000 UNIT/ML 1 ML VIAL SQ SCH (09:00)
[2019-11-25] MEDS ORDERED: MULTIVITAMINS, THERA 1 EACH TAB PO SCH (09:00)
[2019-11-25] MEDS ORDERED: ASPIRIN 325 MG TAB PO SCH (09:00)
[2019-11-25] MEDS ORDERED: ATORVASTATIN 40 MG TAB PO SCH (10:15)
--- NOTE | 2019-11-25 10:43 | CONS ---
CONSULTATION ATTENDING PHYSICIAN: Dr. Ibarra. HISTORY OF PRESENT ILLNESS: Mrs. Baxter is a 49-year-old female who is followed by Dr. Espinoza, who presented to the hospital with symptoms of chest discomfort. The discomfort occurred yesterday at rest. Not activity related. She has had some dyspnea but no significant dizziness or palpitation. No syncope. She has underwent cardiac catheterization by Dr. Espinoza in July of 2018 and at that time had no evidence of significant obstructive disease. She had a 30% plaque in the right coronary artery. The patient has been feeling well since that time. She has no dizziness or palpitation. No syncope. No PND. No orthopnea. CORONARY RISK FACTORS: Negative for hypertension, hyperlipidemia. She is nondiabetic. She has stopped smoking 30 years ago. MEDICATION: None at home. REVIEW OF SYSTEMS: RESPIRATORY SYSTEM: She has no recent wheezing or cough. She has prior history of obstructive lung disease. GI SYSTEM: No recent GI bleeding. No peptic ulcer disease. SYSTEM: No dysuria or hematuria. NERVOUS SYSTEM: No stroke or seizure. PHYSICAL EXAMINATION: Blood pressure 130/80 with a heart in the 60s. HEAD: Normocephalic. EYES: Sclerae anicteric. NECK: Good upstroke. No bruits. No jugular venous distention. LUNGS: Clear to auscultation. HEART: Regular rate and rhythm S1, S2. No S3. No S4. No murmur or rub. ABDOMEN: Soft, nontender. Positive bowel sounds. No organomegaly. EXTREMITIES: No edema. Intact pulses. LAB DATA: Revealed troponin less than 0.012 for 3 samples. Cholesterol of 269, LDL of 193, hemoglobin 14.7. EKG revealed a sinus mechanism, normal axis and intervals. No acute changes. Her chest x-ray shows no acute infiltrate. IMPRESSION: 1. Chest discomfort, atypical for ischemic heart disease, probably noncardiac with a patient with known history of mild obstructive disease by cardiac catheterization in July 2018. 2. Hyperlipidemia, not treated. 3. Prior history of smoking. RECOMMENDATION: I will review the results of her echocardiogram. I will add to her regimen a statin because of the level of her LDL. Increase her activity. If she remains stable, she should be able to be discharged home today and followed as an outpatient with Dr. Espinoza. Thank you for this consult. We will follow with you. MMODL / IJN: [id number] /
[2019-11-25 14:54] VITALS: BP 153/84; PULSE 53; RESP 16; TEMP 97.9
--- NOTE | 2019-11-25 15:36 | ECHOF ---
Referral Reason: MEASUREMENTS -------- HEIGHT: 165.1 cm WEIGHT: 84.4 kg BP: IVSd: 0.9 cm (0.6 - 1.1) LVIDd: 3.8 cm (3.9 - 5.3) LVPWd: 1.0 cm (0.6 - 1.1) EDV(Teich): 62 ml IVSs: 1.2 cm LVIDs: 1.8 cm LVPWs: 1.7 cm %IVS Thck: 37 % ESV(Teich): 10 ml EF(Teich): 83 % %FS: 51 % SV(Teich): 51 ml IVC: 1.6 cm LALs A4C: 5.1 cm LAAs A4C: 17.6 cm LAESV A-L A4C: 51 ml LAESV MOD A4C: 49 ml LALs A2C: 5.0 cm LAAs A2C: 15.2 cm LAESV A-L A2C: 39 ml LAESV MOD A2C: 37 ml LAESV(A-L): 45 ml LAESV Index (A-L): 23.70 ml/m Ao Diam: 3.0 cm (2.0 - 3.7) AV Cusp: 1.9 cm (1.5 - 2.6) LA Diam: 3.0 cm (2.7 - 3.8) MV EXCURSION: 22.213 mm (> 18.000) MV EF SLOPE: 117 mm/s (70 - 150) EPSS: 1.7 cm MV E Sudeep: 1.07 m/s MV DecT: 263 ms MV Dec Blount: 4.1 m/s MV A Sudeep: 0.79 m/s MV E/A Ratio: 1.36 MV PHT: 76 ms AV Vmax: 1.50 m/s AV maxP.95 mmHg TR Vmax: 2.08 m/s TR maxP.23 mmHg RAP: 5.00 mmHg RVSP: 22.23 mmHg FINDINGS -------- Sinus rhythm. This was a technically adequate study. The left ventricular size is normal. Left ventricular wall thickness is normal. Overall left vent ricular systolic function is normal with, an EF between 55 - 60 %. Normal LAP. Grade 1 Diastolic Dy sfunction. The right ventricle is normal in size. Normal LA size by volume 22+/-6 ml/m2. The right atrial size is normal. IAS not well Visualized. The aortic valve is trileaflet, and appears structurally normal. No aortic stenosis or regurgitation. The mitral valve leaflets are mildly thickened. Mild mitral regurgitation is present. The tricuspid valve appears structurally normal. Trace tricuspid regurgitation present. Right giancarlo tricular systolic pressure is normal at < 35 mmHg. There is no pulmonic regurgitation present. The aortic root size is normal. Normal inferior vena cava with normal inspiratory collapse consistent with estimated right atrial pre ssure of 5 mmHg. There is no pericardial effusion. CONCLUSIONS -------- 1. Left ventricular wall thickness is normal. 2. Overall left ventricular systolic function is normal with, an EF between 55 - 60 %. 3. Normal LAP. Grade 1 Diastolic Dysfunction. 4. Normal LA size by volume 22+/-6 ml/m2. 5. The aortic valve is trileaflet, and appears structurally normal. No aortic stenosis or regurgitati on. 6. Trace tricuspid regurgitation present. WIRELESS ENGINEER: Sera Boateng RDCS
[2019-11-26] MEDS ORDERED: ASPIRIN 81 MG PO SCH (09:00)
== END 2019-11-25 16:14 | disposition home or self-care (01) ==
LOC: SUPCPDRO 17:54 → EC 17:54 → 3NCARDOBS 19:50
PROVIDERS: ADMIT Internal Medicine; ATTEND Internal Medicine
DX: R07.89 Other chest pain (principal); E87.6 Hypokalemia; J44.9 Chronic obstructive pulmonary disease, unspecified; I25.10 Atherosclerotic heart disease of native coronary artery without angina pectoris; D72.829 Elevated white blood cell count, unspecified; R00.1 Bradycardia, unspecified; E78.5 Hyperlipidemia, unspecified; Z79.51 Long term (current) use of inhaled steroids; Z88.1 Allergy status to other antibiotic agents; Z98.51 Tubal ligation status; Z98.891 History of uterine scar from previous surgery; Z87.891 Personal history of nicotine dependence; Z80.3 Family history of malignant neoplasm of breast; Z82.49 Family history of ischemic heart disease and other diseases of the circulatory system
CPT/HCPCS: 93005 ×2; 99285; 36415; 93306; 85379; 80061; 80053; 83735 ×2; 84132; 84484 ×2; 85025 ×2; 85610; 85730; 71046; G0378 ×2; J1644

== ENCOUNTER 2021-02-24 23:20 | Emergency (ER) | payer BC ==
[2021-02-25 03:24] LABS: Basophils # (A) 0.1 k/uL (0-0.2); Basophils % (A) 1 %; Eosinophils # (A) 0.3 k/uL (0-0.7); Eosinophils % (A) 3 %; HCT 43.4 % (34.0-46.0); HGB 14.9 gm/dL (11.4-16.0); Lymphocytes # (A) 3.6 k/uL (1.0-4.8); Lymphocytes % (A) 33 %; MCH 31.2 pg (25.0-35.0); MCHC 34.4 g/dL (31.0-37.0); MCV 90.8 fL (80.0-100.0); Mean Platelet Volume 7.9; Monocytes # (A) 0.5 k/uL (0-1.0); Monocytes % (A) 4 %; Neutrophils # (A) 6.1 k/uL (1.3-7.7); Neutrophils % (A) 57 %; Platelet Count 285 k/uL (150-450); RBC 4.78 m/uL (3.80-5.40); RDW 13.1 % (11.5-15.5); WBC 10.7 k/uL (3.8-10.6)
--- NOTE | 2021-02-25 04:05 | CT ---
EXAMINATION TYPE: CT abdomen pelvis wo con DATE OF EXAM: 02/25/2021 COMPARISON: None HISTORY: Right upper abdominal pain CT DLP: 949.4 mGycm Automated exposure control for dose reduction was used. Lung bases are clear. There is no pleural effusion. Heart size is normal. There is no pericardial eff usion. There are clips from cholecystectomy. Liver spleen pancreas stomach appear intact. The bile ducts are not dilated. There is no adrenal mass. Kidneys show normal size and contour. There is no hydronephrosis. There is no retroperitoneal adenopathy. Abdominal aorta is atheromatous. Bladder distends smoothly. There is n o inguinal hernia. There are some sigmoid diverticula. There is no diverticulitis. Terminal ileum kika ears normal. Appendix appears normal. There is no mesenteric edema. There is no ascites or free air. There is no bowel obstruction. The lumbar vertebra have fairly normal alignment. There is mild narrowing at L4-5 disc. There is no c ompression fracture. The bony pelvis is intact. The hip joints are intact. IMPRESSION: No evidence of renal stone or obstruction. No dilated ducts. Normal appendix. Mild colonic diverticulosis without diverticulitis.
[2021-02-25 04:07] LABS: ALT 31 U/L (4-34); AST 30 U/L (14-36); African American GFR (CKD) >90 (>60 ml/min/1.73 sqM); Albumin 4.6 g/dL (3.5-5.0); Alkaline Phosphatase 63 U/L (38-126); Amylase 74 U/L (30-110); Anion Gap 9 mmol/L; Blood Urea Nitrogen 17 mg/dL (7-17); Calcium 9.8 mg/dL (8.4-10.2); Carbon Dioxide 24 mmol/L (22-30); Chloride 105 mmol/L (98-107); Glucose 122 mg/dL (74-99); Lipase 295 U/L (23-300); Non-African American GFR(CKD) >90 (>60 ml/min/1.73 sqM); Potassium 3.9 mmol/L (3.5-5.1); Sodium 138 mmol/L (137-145); Total Bilirubin 0.3 mg/dL (0.2-1.3); Total Protein 7.4 g/dL (6.3-8.2)
[2021-02-25 04:26] LABS: Appearance,Urine Clear (Clear); Bacteria,Urine Rare /hpf; Bilirubin,Urine Negative (Negative); Blood,Urine Negative (Negative); Calcium Oxalate Crystals,Urine Few /hpf; Color,Urine Yellow; Glucose,Urine (UA) Negative (Negative); Ketones,Urine Negative (Negative); Leukocyte Esterase,Urine Large (Negative); Mucus,Urine Rare /hpf; Nitrite,Urine Negative (Negative); PH, Urine 5.5 (5.0-8.0); Protein,Urine Negative (Negative); RBC,Urine 3 /hpf (0-5); Specific Gravity,Urine 1.026 (1.001-1.035); Squamous Epithelial Cell,Urine 2 /hpf (0-4); Urobilinogen,Urine <2.0 mg/dL (<2.0); WBC,Urine 28 /hpf (0-5)
--- NOTE | 2021-02-25 05:14 | ED ---
Abdominal Pain HPI - General Chief Complaint: Abdominal Pain Stated Complaint: Upper abdominal pain Time Seen by Provider: 02/25/21 02:49 Source: patient Mode of arrival: ambulatory Limitations: no limitations - History of Present Illness MD Complaint: abdominal pain -: week(s) Location: [facility] Radiation: none Migration to: no migration Severity: moderate Quality: burning Consistency: intermittent Improves With: nothing Worsens With: movement Associated Symptoms: denies other symptoms - Related Data Home Medications Medication Instructions Recorded Confirmed Multivitamins, Thera [Multivitamin 1 tab PO DAILY 11/24/19 11/24/19 (formulary)] Previous Rx's Medication Instructions Recorded Aspirin 81 mg PO DAILY #30 chew 11/25/19 Atorvastatin [Lipitor] 40 mg PO DAILY #30 tab 11/25/19 Nitroglycerin Sl Tabs [Nitrostat] 0.4 mg SUBLINGUAL Q5M PRN #20 tab 11/25/19 Allergies Allergy/AdvReac Type Severity Reaction Status Date / Time cephalexin monohydrate Allergy Rash/Hives Verified 02/24/21 23:56 [From [employer]] Review of Systems ROS Statement: Those systems with pertinent positive or pertinent negative responses have been documented in the HPI. ROS Other: All systems not noted in ROS Statement are negative. Constitutional: Denies: fever, chills, weakness Respiratory: Denies: cough, dyspnea Cardiovascular: Denies: chest pain, palpitations Gastrointestinal: Reports: as per HPI, abdominal pain. Denies: nausea, vomiting, diarrhea, constipation, melena, hematochezia Genitourinary: Denies: dysuria, hematuria Musculoskeletal: Denies: back pain Skin: Denies: rash Neurological: Denies: headache, weakness, numbness Past Medical History Past Medical History: COPD History of Any Multi-Drug Resistant Organisms: None Reported Past Surgical History: Section, Cholecystectomy, Tubal Ligation Additional Past Surgical History / Comment(s): uterine ablation Past Anesthesia/Blood Transfusion Reactions: No Reported Reaction Past Psychological History: No Psychological Hx Reported Smoking Status: Former smoker Past Alcohol Use History: None Reported Past Drug Use History: None Reported - Past Family History Mother Family Medical History: Cancer, Deep Vein Thrombosis (DVT), Pulmonary Embolus Additional Family Medical History / Comment(s): BREAST CANCER General Exam Limitations: no limitations General appearance: alert, in no apparent distress Head exam: Present: atraumatic, normocephalic Eye exam: Present: normal appearance Neck exam: Present: normal inspection Respiratory exam: Present: normal lung sounds bilaterally. Absent: respiratory distress, wheezes, rales, rhonchi, stridor Cardiovascular Exam: Present: regular rate, normal rhythm, normal heart sounds. Absent: systolic murmur, diastolic murmur, rubs, gallop GI/Abdominal exam: Present: soft, tenderness (There is mild tenderness to palpation at the costal margin where the abdominal wall joins. No hernia is evident.), normal bowel sounds. Absent: distended, guarding, rebound, rigid, mass, pulsatile mass, hernia Extremities exam: Present: normal inspection, normal capillary refill. Absent: pedal edema, calf tenderness Back exam: Present: normal inspection. Absent: CVA tenderness (R), CVA tenderness (L) Neurological exam: Present: alert Skin exam: Present: warm, dry, intact, normal color. Absent: rash Course Vital Signs 02/24/21 02/25/21 23:54 05:22 Temperature 97.5 F L 97.7 F Pulse Rate 64 59 L Respiratory 18 16 Rate Blood Pressure 130/94 163/86 O2 Sat by Pulse 98 97 Oximetry Medical Decision Making - Lab Data Result diagrams: 02/25/21 02:55 02/25/21 02:55 Lab Results 02/25/21 02/25/21 02/25/21 Range/Units 02:55 02:55 02:55 WBC 10.7 H (3.8-10.6) k/uL RBC 4.78 (3.80-5.40) m/uL Hgb 14.9 (11.4-16.0) gm/dL Hct 43.4 (34.0-46.0) % MCV 90.8 (80.0-100.0) fL MCH 31.2 (25.0-35.0) pg MCHC 34.4 (31.0-37.0) g/dL RDW 13.1 (11.5-15.5) % Plt Count 285 (150-450) k/uL MPV 7.9 Neutrophils % 57 % Lymphocytes % 33 % Monocytes % 4 % Eosinophils % 3 % Basophils % 1 % Neutrophils # 6.1 (1.3-7.7) k/uL Lymphocytes # 3.6 (1.0-4.8) k/uL Monocytes # 0.5 (0-1.0) k/uL Eosinophils # 0.3 (0-0.7) k/uL Basophils # 0.1 (0-0.2) k/uL Sodium (137-145) mmol/L Potassium (3.5-5.1) mmol/L Chloride (98-107) mmol/L Carbon Dioxide (22-30) mmol/L Anion Gap mmol/L BUN (7-17) mg/dL Creatinine (0.52-1.04) mg/dL Est GFR (CKD-EPI)AfAm (>60 ml/min/1.73 sqM) Est GFR (CKD-EPI)NonAf (>60 ml/min/1.73 sqM) Glucose (74-99) mg/dL Calcium (8.4-10.2) mg/dL Total Bilirubin (0.2-1.3) mg/dL AST (14-36) U/L ALT (4-34) U/L Alkaline Phosphatase (38-126) U/L Total Protein (6.3-8.2) g/dL Albumin (3.5-5.0) g/dL Amylase (30-110) U/L Lipase (23-300) U/L Urine Color Yellow Urine Appearance Clear (Clear) Urine pH 5.5 (5.0-8.0) Ur Specific [place] 1.026 (1.001-1.035) Urine Protein Negative (Negative) Urine Glucose (UA) Negative (Negative) Urine Ketones Negative (Negative) Urine Blood Negative (Negative) Urine Nitrite Negative (Negative) Urine Bilirubin Negative (Negative) Urine Urobilinogen <2.0 (<2.0) mg/dL Ur Leukocyte Esterase Large H (Negative) Urine RBC 3 (0-5) /hpf Urine WBC 28 H (0-5) /hpf Ur Squamous Epith Cells 2 (0-4) /hpf Calcium Oxalate Crystal Few H (None) /hpf Urine Bacteria Rare H (None) /hpf Urine Mucus Rare H (None) /hpf Urine HCG, Qual Not Detected (Not Detectd) 02/25/21 Range/Units 02:55 WBC (3.8-10.6) k/uL RBC (3.80-5.40) m/uL Hgb (11.4-16.0) gm/dL Hct (34.0-46.0) % MCV (80.0-100.0) fL MCH (25.0-35.0) pg MCHC (31.0-37.0) g/dL RDW (11.5-15.5) % Plt Count (150-450) k/uL MPV Neutrophils % % Lymphocytes % % Monocytes % % Eosinophils % % Basophils % % Neutrophils # (1.3-7.7) k/uL Lymphocytes # (1.0-4.8) k/uL Monocytes # (0-1.0) k/uL Eosinophils # (0-0.7) k/uL Basophils # (0-0.2) k/uL Sodium 138 (137-145) mmol/L Potassium 3.9 (3.5-5.1) mmol/L Chloride 105 (98-107) mmol/L Carbon Dioxide 24 (22-30) mmol/L Anion Gap 9 mmol/L BUN 17 (7-17) mg/dL Creatinine 0.55 (0.52-1.04) mg/dL Est GFR (CKD-EPI)AfAm >90 (>60 ml/min/1.73 sqM) Est GFR (CKD-EPI)NonAf >90 (>60 ml/min/1.73 sqM) Glucose 122 H (74-99) mg/dL Calcium 9.8 (8.4-10.2) mg/dL Total Bilirubin 0.3 (0.2-1.3) mg/dL AST 30 (14-36) U/L ALT 31 (4-34) U/L Alkaline Phosphatase 63 (38-126) U/L Total Protein 7.4 (6.3-8.2) g/dL Albumin 4.6 (3.5-5.0) g/dL Amylase 74 (30-110) U/L Lipase 295 (23-300) U/L Urine Color Urine Appearance (Clear) Urine pH (5.0-8.0) Ur Specific [place] (1.001-1.035) Urine Protein (Negative) Urine Glucose (UA) (Negative) Urine Ketones (Negative) Urine Blood (Negative) Urine Nitrite (Negative) Urine Bilirubin (Negative) Urine Urobilinogen (<2.0) mg/dL Ur Leukocyte Esterase (Negative) Urine RBC (0-5) /hpf Urine WBC (0-5) /hpf Ur Squamous Epith Cells (0-4) /hpf Calcium Oxalate Crystal (None) /hpf Urine Bacteria (None) /hpf Urine Mucus (None) /hpf Urine HCG, Qual (Not Detectd) Disposition Clinical Impression: Abdominal wall strain Disposition: HOME SELF-CARE Condition: Good Instructions (If sedation given, give patient instructions): Abdominal Pain (ED) Is patient prescribed a controlled substance at d/c from ED?: No Referrals: Solo Ibarra MD [Primary Care Provider] - 1-2 days
[2021-02-25 05:24] VITALS: BP 163/86; PULSE 59; RESP 16; TEMP 97.7
== END 2021-02-25 05:22 | disposition home or self-care (01) ==
LOC: EC 23:20
DX: S39.011A Strain of muscle, fascia and tendon of abdomen, initial encounter (principal); J44.9 Chronic obstructive pulmonary disease, unspecified; Z87.891 Personal history of nicotine dependence; Z88.1 Allergy status to other antibiotic agents; X58.XXXA Exposure to other specified factors, initial encounter
CPT/HCPCS: 36415; 74176; 80053; 81001; 81025; 82150; 83690; 85025; 87086; 99284

== ENCOUNTER → 2022-02-07 | Outpatient (CLI) | payer BC ==
[2022-02-07 10:29] LABS: HCT 43.4 % (34.0-46.0); HGB 14.8 gm/dL (11.4-16.0); MCH 30.9 pg (25.0-35.0); MCHC 34.1 g/dL (31.0-37.0); MCV 90.8 fL (80.0-100.0); Mean Platelet Volume 9.1; Platelet Count 218 k/uL (150-450); RBC 4.78 m/uL (3.80-5.40); RDW 13.2 % (11.5-15.5); WBC 8.4 k/uL (3.8-10.6)
[2022-02-07 10:41] LABS: ALT 39 U/L (4-34); AST 30 U/L (14-36); African American GFR (CKD) >90 (>60 ml/min/1.73 sqM); Albumin 4.3 g/dL (3.5-5.0); Albumin/Globulin Ratio 1.7; Alkaline Phosphatase 65 U/L (38-126); Anion Gap 11 mmol/L; Blood Urea Nitrogen 15 mg/dL (7-17); Calcium 8.8 mg/dL (8.4-10.2); Carbon Dioxide 25 mmol/L (22-30); Chloride 107 mmol/L (98-107); Globulin 2.5 g/dL; Glucose 102 mg/dL (74-99); Non-African American GFR(CKD) >90 (>60 ml/min/1.73 sqM); Potassium 3.8 mmol/L (3.5-5.1); Sodium 143 mmol/L (137-145); Total Bilirubin 0.5 mg/dL (0.2-1.3); Total Protein 6.8 g/dL (6.3-8.2)
[2022-02-07 23:19] LABS: Chol/HDL Ratio 3.08 Ratio; LDL Cholesterol,Calculated 60.2 mg/dL (0.0-131.0)
== END | disposition home or self-care (01) ==
LOC: LABWHC1 09:46
PROVIDERS: ATTEND Internal Medicine Cardiovascular Disease
DX: I21.11 ST elevation (STEMI) myocardial infarction involving right coronary artery (principal)
CPT/HCPCS: 36415; 80053; 80061; 85027

== ENCOUNTER → 2022-04-11 | Outpatient (CLI) | payer BC ==
[2022-04-11 10:28] LABS: Amorphous Sediment,Urine Rare /hpf; Appearance,Urine Cloudy (Clear); Bacteria,Urine Rare /hpf; Bilirubin,Urine Negative (Negative); Blood,Urine Negative (Negative); Color,Urine Yellow; Glucose,Urine (UA) Negative (Negative); Ketones,Urine Negative (Negative); Leukocyte Esterase,Urine Large (Negative); Mucus,Urine Few /hpf; Nitrite,Urine Negative (Negative); PH, Urine 5.5 (5.0-8.0); Protein,Urine Trace (Negative); RBC,Urine 2 /hpf (0-5); Squamous Epithelial Cell,Urine 9 /hpf (0-4); Urobilinogen,Urine <2.0 mg/dL (<2.0); WBC,Urine 25 /hpf (0-5)
[2022-04-11 17:23] LABS: HGB 14.9 g/dL (12.0-15.0); MCH 30.5 pg (27.0-32.0); MCHC 33.9 g/dL (32.0-37.0); Mean Platelet Volume 11.3 fL (9.5-12.2); NRBC Per 100 WBC 0 /100 WBCS (0.0-0.0); Platelet Count 266 X 10*3/uL (140-440); RBC 4.89 X 10*6/uL (4.10-5.20); RDW 12.8 % (11.5-14.5); WBC 10.29 X 10*3/uL (4.50-10.00)
[2022-04-11 17:37] LABS: Erythrocyte Sedimentation Rate 12 mm/Hr (0-20)
[2022-04-11 20:41] LABS: ALT 57 U/L (8-44); AST 32 U/L (13-35); African American GFR (CKD) 99.6 (60.0-200.0); Albumin 4.3 g/dL (3.8-4.9); Albumin/Globulin Ratio 1.83 (1.60-3.17); Alkaline Phosphatase 95 U/L (41-126); BUN/Creat Ratio 23.11 Ratio (12.00-20.00); Blood Urea Nitrogen 18.6 mg/dL (9.0-27.0); C Reactive Protein <0.30 mg/dL (0.00-0.80); Carbon Dioxide 20.6 mmol/L (20.0-27.5); Chloride 108 mmol/L (96-109); Chol/HDL Ratio 3.69 Ratio; Globulin 2.3 g/dL (1.6-3.3); Glucose 126 mg/dL (70-110); LDL Cholesterol,Calculated 63.2 mg/dL (0.0-131.0); Magnesium 2.1 mg/dL (1.5-2.4); Non-African American GFR(CKD) 85.9 (60.0-200.0); Potassium 3.9 mmol/L (3.5-5.5); Sodium 143 mmol/L (135-145); Total Protein 6.6 g/dL (6.2-8.2)
== END | disposition home or self-care (01) ==
LOC: LABWHC1 08:09
DX: I25.10 Atherosclerotic heart disease of native coronary artery without angina pectoris (principal); E78.2 Mixed hyperlipidemia; R53.83 Other fatigue; R31.9 Hematuria, unspecified
CPT/HCPCS: 36415; 80053; 80061; 81001; 82607; 82652; 82747; 83090; 83735; 84443; 85027; 85652; 86038; 86140